=== PATIENT | female | born 1950 | race Caucasian/White ===

== ENCOUNTER 2017-09-01 20:02 | Emergency (ER) | payer SELFPAY ==
[2017-09-01 20:20] VITALS: BP 102/67; PULSE 117; TEMP 99.4; BMI 29.0
--- NOTE | 2017-09-01 20:21 | PDOC ---
Rapid Medical Evaluation Time Seen by Provider: 09/01/17 20:16 Medical Evaluation: 09/01/17 20:20 I have performed a brief in-person evaluation of this patient. The patient presents with a chief complaint of vomiting and diarrhea since early this am Patient complaining of intermittent abdominal cramping. Pertinent physical exam finding are appears uncomfortable lungs clear bilaterally abdomen + bowel sounds, generalized tenderness I have ordered the following: labs ordered The patient will proceed to the ED for further evaluation.
[2017-09-01] MEDS ORDERED: SODIUM CHLORIDE 1,000 ML IV STA (20:22)
[2017-09-01] MEDS ORDERED: ONDANSETRON 4 MG/2 ML VIAL IVPB ONE (20:22)
[2017-09-01] MEDS ORDERED: ONDANSETRON 4 MG/2 ML VIAL ONE (22:26)
[2017-09-01 22:31] LABS: BASO % 0.3 % (0-2.0); EOS % 0.3 % (0-4.5); HEMATOCRIT 41.8 % (32.4-45.2); LYMPH % 4.3 % (8-40); MCH 29.5 pg (25.7-33.7); MCHC 33.5 g/dl (32.0-36.0); MEAN PLT VOLUME 8.5 fl (7.5-11.1); MONO % 6.2 % (3.8-10.2); NEUT % 88.9 % (42.8-82.8); PLATELET COUNT 323 K/MM3 (134-434); RBC 4.76 M/mm3 (3.60-5.2); RDW 15.3 % (11.6-15.6); WHITE BLOOD COUNT 10.7 K/mm3 (4.0-10.0)
[2017-09-01 22:58] LABS: CHLORIDE 107 mmol/L (98-107); CREATININE 1.1 mg/dL (0.55-1.02); POTASSIUM 4.4 mmol/L (3.5-5.1); SODIUM 138 mmol/L (136-145)
[2017-09-01 23:13] LABS: ANION GAP 7 (8-16); BLOOD UREA NITROGEN 15 mg/dL (7-18); CO2 24 mmol/L (21-32); GLUCOSE,RANDOM 145 mg/dL (74-106)
[2017-09-01 23:14] LABS: INR 1.03 (0.82-1.09); PROTHROMBIN TIME (PATIENT) 11.6 SEC (9.98-11.88)
[2017-09-01 23:17] LABS: ACTIVATED PTT 32.1 SECONDS (26.9-34.4)
--- NOTE | 2017-09-02 00:10 | PDOC ---
History of Present Illness - General History Source: Patient, Family Exam Limitations: No Limitations - History of Present Illness Initial Comments: 09/02/17 00:33 The patient is a 66 year old female presenting with her son, with a significant past medical history of IDDM, who presents to the emergency department complaining of abdominal discomfort, nausea, vomiting and diarrhea since early this morning. The patient recently arrived from [facility] 2 weeks ago. She denies any other kind of travel or sick contacts. She describes her vomit as nonbloody and her diarrhea as nonbloody / nonbilious. She notes that she has had over 20 episodes of diarrhea and only 1 episode of emesis. She denies taking any medications for her symptoms. The patient denies chest pain, shortness of breath, headache, dizziness, fever, chills, and constipation. Denies dysuria, frequency, urgency and hematuria. Allergies: Allergies Past surgical history: Social History: No alcohol, tobacco or drug use reported <Parish Gautam - Last Filed: 09/02/17 00:33> <Christie Lemus - Last Filed: 09/02/17 01:48> - General Chief Complaint: Vomiting/Diarrhea Stated Complaint: Vomiting/Diarrhea Time Seen by Provider: 09/01/17 20:16 Past History <Parish Gautam - Last Filed: 09/02/17 00:33> - Past Medical History COPD: No Diabetes: Yes - Suicide/Smoking/Psychosocial Hx Smoking History: Never smoked <Christie Lemus - Last Filed: 09/02/17 01:48> - Past Medical History Allergies/Adverse Reactions: Allergies Allergy/AdvReac Type Severity Reaction Status Date / Time No Known Allergies Allergy Verified 09/01/17 20:20 Home Medications: Ambulatory Orders Insulin (Novolog 70/30) [Novolog Mix 70/30 Vial] 40 units SQ DAILY 09/01/17 Review of Systems - Review of Systems Able to Perform ROS?: Yes Comments:: 09/02/17 00:33 GENERAL/CONSTITUTIONAL: No fever or chills. No weakness. HEAD, EYES, EARS, NOSE AND THROAT: No change in vision. No ear pain or discharge. No sore throat. CARDIOVASCULAR: No chest pain or shortness of breath RESPIRATORY: No cough, wheezing, or hemoptysis. GASTROINTESTINAL: (+) Abdominal pain, Nausea, vomiting, diarrhea. No constipation. GENITOURINARY: No dysuria, frequency, or change in urination. MUSCULOSKELETAL: No joint or muscle swelling or pain. No neck or back pain. SKIN: No rash NEUROLOGIC: No headache, vertigo, loss of consciousness, or change in strength/ sensation. ENDOCRINE: No increased thirst. No abnormal weight change HEMATOLOGIC/LYMPHATIC: No anemia, easy bleeding, or history of blood clots. ALLERGIC/IMMUNOLOGIC: No hives or skin allergy. <Parish Gautam - Last Filed: 09/02/17 00:33> *Physical Exam - Vital Signs Last Vital Signs Temp Pulse Resp BP Pulse Ox 99.4 F 117 H 28 H 102/67 97 09/01/17 20:18 09/01/17 20:18 09/01/17 20:18 09/01/17 20:18 09/01/17 20:18 - Physical Exam Comments: 09/02/17 00:33 GENERAL: Awake, alert, and fully oriented, in no acute distress HEAD: No signs of trauma, normocephalic, atraumatic EYES: PERRLA, EOMI, sclera anicteric, conjunctiva clear ENT: (+) Black Hairy Tongue. Auricles normal inspection, hearing grossly normal , nares patent, oropharynx clear without exudates. Moist mucosa NECK: Normal ROM, supple, no lymphadenopathy, JVD, or masses LUNGS: No distress, speaks full sentences, clear to auscultation bilaterally HEART: Regular rate and rhythm, normal S1 and S2, no murmurs, rubs or gallops, peripheral pulses normal and equal bilaterally. ABDOMEN: Soft, nontender, normoactive bowel sounds. No guarding, no rebound. No masses EXTREMITIES : Normal inspection, Normal range of motion, no edema. No clubbing or cyanosis. NEUROLOGICAL: Cranial nerves II through XII grossly intact. Normal speech, normal gait, no focal sensorimotor deficits SKIN: Warm, Dry, normal turgor, no rashes or lesions noted <Parish Gautam - Last Filed: 09/02/17 00:33> - Vital Signs Last Vital Signs Temp Pulse Resp BP Pulse Ox 99.4 F 117 H 28 H 102/67 97 09/01/17 20:18 09/01/17 20:18 09/01/17 20:18 09/01/17 20:18 09/01/17 20:18 <Christie Lemus - Last Filed: 09/02/17 01:48> ED Treatment Course - LABORATORY CBC & Chemistry Diagram: 09/01/17 22:18 09/01/17 22:18 - ADDITIONAL ORDERS Additional order review: Laboratory Results 09/01/17 09/01/17 22:18 22:18 PT with INR 11.60 INR 1.03 PTT (Actin FS) 32.1 Sodium 138 Potassium 4.4 Chloride 107 Carbon Dioxide 24 Anion Gap 7 L BUN 15 Creatinine 1.1 H Random Glucose 145 H Calcium 9.0 09/01/17 22:18 RBC 4.76 MCV 88.0 MCHC 33.5 RDW 15.3 MPV 8.5 Neutrophils % 88.9 H Lymphocytes % 4.3 L Monocytes % 6.2 Eosinophils % 0.3 Basophils % 0.3 - Medications Given in the ED: ED Medications Discontinued Medications Generic Name Dose Route Start Last Admin Trade Name Keyonq PRN Reason Stop Dose Admin Sodium Chloride 1,000 mls @ 1,000 mls/hr 09/01/17 20:22 09/01/17 22:30 Normal Saline - IV 09/01/17 21:21 1,000 mls/hr ASDIR STA Administration Ondansetron HCl 8 mg 09/01/17 20:22 09/01/17 22:30 Zofran Injection IVPB 09/01/17 20:23 8 mg ONCE ONE Administration <Parish Gautam - Last Filed: 09/02/17 00:33> - LABORATORY CBC & Chemistry Diagram: 09/01/17 22:18 09/01/17 22:18 - ADDITIONAL ORDERS Additional order review: Laboratory Results 09/01/17 09/01/17 22:18 22:18 PT with INR 11.60 INR 1.03 PTT (Actin FS) 32.1 Sodium 138 Potassium 4.4 Chloride 107 Carbon Dioxide 24 Anion Gap 7 L BUN 15 Creatinine 1.1 H Random Glucose 145 H Calcium 9.0 09/01/17 22:18 RBC 4.76 MCV 88.0 MCHC 33.5 RDW 15.3 MPV 8.5 Neutrophils % 88.9 H Lymphocytes % 4.3 L Monocytes % 6.2 Eosinophils % 0.3 Basophils % 0.3 - Medications Given in the ED: ED Medications Discontinued Medications Generic Name Dose Route Start Last Admin Trade Name Freq PRN Reason Stop Dose Admin Sodium Chloride 1,000 mls @ 1,000 mls/hr 09/01/17 20:22 09/01/17 22:30 Normal Saline - IV 09/01/17 21:21 1,000 mls/hr ASDIR STA Administration Ondansetron HCl 8 mg 09/01/17 20:22 09/01/17 22:30 Zofran Injection IVPB 09/01/17 20:23 8 mg ONCE ONE Administration <Christie Lemus - Last Filed: 09/02/17 01:48> Medical Decision Making - Medical Decision Making 09/02/17 01:46 Abdomen and pelvis CAT scan with contrast. Impression there is a diarrheal illness without discrete colonic wall thickening. Right renal scarring. Lung bases are clear The cardiac chambers are normal size. Right renal scarring is noted without stones or hydronephrosis. Normal liver, gallbladder, pancreas, spleen, adrenal glands and left kidney. Stomach and small bowel are normal. There is no aortic aneurysm. There is no significant retroperitoneal lymphadenopathy. Is no evidence of appendicitis The uterus and adnexal structures are normal. Urinary bladder is unremarkable She improved with fluids. Patient discharged home <Christie Lemus - Last Filed: 09/02/17 01:48> *DC/Admit/Observation/Transfer - Attestations Scribe Attestion: 09/02/17 00:33 Documentation prepared by Parish Gautam, acting as medical billing representative for Christie Lemus MD <Parish Gautam - Last Filed: 09/02/17 00:33> <Christie Lemus - Last Filed: 09/02/17 01:48> Diagnosis at time of Disposition: Diarrhea Qualifiers: Diarrhea type: unspecified type Qualified Code(s): R19.7 - Diarrhea, unspecified Vomiting Qualifiers: Vomiting type: unspecified Vomiting Intractability: non-intractable Nausea presence: with nausea Qualified Code(s): R11.2 - Nausea with vomiting, unspecified Diabetes Qualifiers: Diabetes mellitus type: type 2 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
== END 2017-09-02 01:56 | disposition home or self-care (01) ==
LOC: JER 20:02
PROC: 3E033GC Introduction of Other Therapeutic Substance into Peripheral Vein, Percutaneous Approach (ICD-10-PCS; principal; 2017-09-01)
DX: R11.2 Nausea with vomiting, unspecified (principal); E11.9 Type 2 diabetes mellitus without complications; Z79.4 Long term (current) use of insulin
CPT/HCPCS: 36415; 74177-TC; 80048; 85025; 85610; 85730; 99282-25; J7030